=== PATIENT | female | born 1985 | race American Indian/Alaskan Native ===

== ENCOUNTER 2019-11-13 09:07 | Inpatient (IN) | payer OTHER ==
[2019-11-13] MEDS ORDERED: fentaNYL 100 MCG/2 ML INJ IV PRN (10:33)
[2019-11-13] MEDS ORDERED: TERBUTALINE 1 MG/1 ML INJ SUB-Q PRN (10:33)
[2019-11-13] MEDS ORDERED: MINERAL OIL 30 ML ORAL LIQD PO PRN (10:33)
[2019-11-13] MEDS ORDERED: LIDOCAINE (2%) 20 MG/1 ML VIAL 20 ML MDV INFILTRATI ONE (10:33)
[2019-11-13] MEDS ORDERED: DINOPROSTONE 10 MG VAG SUPP VG ONE (10:33)
[2019-11-13] MEDS ORDERED: NALOXONE 0.4 MG/1 ML INJ IV PRN (10:33)
[2019-11-13] MEDS ORDERED: TERBUTALINE 1 MG/1 ML INJ IVP PRN (10:33)
[2019-11-13] MEDS ORDERED: ONDANSETRON 4 MG/2 ML INJ IV PRN (10:33)
[2019-11-13] MEDS ORDERED: ePHEDrine SULFATE 50 MG/1 ML INJ IV PRN (10:33)
[2019-11-13] MEDS ORDERED: OXYTOCIN 20 UNIT/1000ML DRIP 20 UNITS/1,000 ML BAG IV SCH (11:00)
[2019-11-13] MEDS ORDERED: OXYTOCIN DRIP 30 UNITS/500 ML BAG IV SCH ×2 (11:00)
[2019-11-13 12:08] LABS: Hematocrit 38.1 % (30.3-42.9); Hemoglobin 13.2 gm/dl (10.1-14.3); Mean Corpuscular HGB Conc 35 % (30-34); Mean Corpuscular Volume 92 fl (79-97); Platelet Count 192 K/mm3 (140-440); Red Blood Count 4.15 M/mm3 (3.65-5.03); Red Cell Distribution Width 13.7 % (13.2-15.2)
[2019-11-13] MEDS: LACTATED RINGERS 1,000 ML IV SCH ×2 (12:33→20:16)
--- NOTE | 2019-11-13 17:59 | History and Physical Report ---
History of Present Illness Date of examination: 11/13/19 Date of admission: 11/13/19 09:08 Chief complaint: scheduled induction of labor History of present illness: Pt is a 34 year old primigravida [place] 12/02/19 at 37w2d who presents for scheduled induction of labor secondary to preeclampsia with mild features and IUGR (7%ile). She denies vaginal bleeding or leakage of fluid. She reports rare contractions. She has had care at [facility] since 18 wks complicated by EIF, trichomonas treated with negative test of cure. She is GBS negative. Past History Past Medical History: no pertinent history Past Surgical History: no surgical history [employer] History: trichomonas (treated with negative test of cure ) Family/Genetic History: none Social history: (Same-sex relationship ) - Obstetrical History Expected Date of Delivery: 12/02/19 Actual Gestation: 37 Week(s) 2 Day(s) : 1 Medications and Allergies Allergies Allergy/AdvReac Type Severity Reaction Status Date / Time ibuprofen Allergy Unknown Verified 11/13/19 10:47 Latex, Natural Rubber Allergy Unknown Verified 11/13/19 10:49 Active Meds: Active Medications Butorphanol Tartrate (Stadol) 1 mg IV Q2H PRN PRN Reason: Pain, Moderate(4-6) LABOR PAIN Butorphanol Tartrate (Stadol) 2 mg IV Q2H PRN PRN Reason: Pain , Severe (7-10) Ephedrine Sulfate (Ephedrine Sulfate) 10 mg IV Q2M PRN PRN Reason: Hypotension Fentanyl (Sublimaze) 100 mcg IV Q2H PRN PRN Reason: Pain,Severe (7-10) LABOR PAIN Oxytocin/Sodium Chloride (Pitocin/Ns 20 Unit/1000ml Drip) 20 units in 1,000 mls @ 125 mls/hr IV DIRECT NAVDEEP Oxytocin/Sodium Chloride (Pitocin/Ns 30 Unit/500ml) 30 units in 500 mls @ 1 mls/hr IV TITR NAVDEEP; Protocol Lactated Ringer's (Lactated Ringers) 1,000 mls @ 125 mls/hr IV DIRECT NAVDEEP Last Admin: 11/13/19 12:33 Dose: 125 mls/hr Documented by: Mineral Oil (Mineral Oil) 30 ml PO QHS PRN PRN Reason: Constipation Naloxone HCl (Naloxone) 0.1 mg IV Q2MIN PRN PRN Reason: Res Rate </= 8 or 02 SAT < 92% Ondansetron HCl (Zofran) 4 mg IV Q8H PRN PRN Reason: Nausea And Vomiting Terbutaline Sulfate (Brethine) 0.25 mg SUB-Q ONCE PRN PRN Reason: Hyperstimulation/Hypertonicity Terbutaline Sulfate (Brethine) 0.25 mg IVP ONCE PRN PRN Reason: Hyperstimulation/Hypertonicity Review of Systems All systems: negative - Vital Signs Vital signs: Vital Signs Pulse BP 78 135/77 11/13/19 09:56 11/13/19 09:56 Temp Pulse Resp BP Pulse Ox 98.2 F 78 18 133/63 100 11/13/19 14:01 11/13/19 17:56 11/13/19 16:01 11/13/19 17:55 11/13/19 17:56 - Physical Exam Breasts: Positive: deferred Abdomen: Positive: soft (obese, gravid ) Uterus: Positive: enlarged (gravid ) Extremities: Positive: normal - Obstetrical FHR: auscultation normal Uterine Contraction Pattern: Irregular Results Result Diagrams: 11/13/19 11:40 Abnormal lab results 11/13/19 Range/Units 11:40 MCHC 35 H (30-34) % All other labs normal. Assessment and Plan A: IUP at 37w2d Preeclampsia without severe features IUGR Obesity Trichomonas treated with negative test of cure GBS Negative P: Admit to labor and delivery Cervical ripening Closely monitor maternal and status
[2019-11-13] MEDS: BUTORPHANOL 2 MG/1 ML INJ IV PRN ×4 (18:25→22:45)
[2019-11-14] MEDS: BUTORPHANOL 2 MG/1 ML INJ IV PRN ×4 (00:45→05:45)
[2019-11-14] MEDS: LACTATED RINGERS 1,000 ML IV SCH ×2 (03:32→22:32)
[2019-11-14] MEDS ORDERED: LIDOCAINE (2%) 20 MG/1 ML VIAL 20 ML MDV INFILTRATI ONE ×2 (07:42→08:22)
--- NOTE | 2019-11-14 08:32 | Procedure Note ---
OB Delivery Note - Delivery Date of Delivery: 11/14/19 Surgeon: SHAUNA GRAFF Estimated blood loss: 100cc - Vaginal Delivery presentation: vertex Intrapartum events: gestational hypertension Delivery augmentation: pitocin Delivery monitor: external FHT, external uterine Route of delivery: Delivery placenta: spontaneous Delivery cord: 3 umbilical vessels Episiotomy: none Delivery laceration: 1st degree Delivery repair: vicryl Anesthesia: local Delivery comments: The patient progressed to complete complete +1 and post to deliver a live-born female with Apgars of 8 and 9 weight 4 pounds 8 ounces. After delivery of the head the shoulders delivered without difficulty. The was immediately placed on the patient's abdomen. Delayed cord clamping was performed. The infant was bulb suctioned and stimulated. The cord was clamped and cut x2. The placenta delivered spontaneously intact with a three-vessel cord. The patient sustained a midline first-degree laceration repaired with 2-0 Vicryl after being injected with 10 cc of lidocaine. Estimated blood loss of 100 mL. - Infant A at 1 minute: 8 at 5 minutes: 9 Infant Gender: Female (Weight 4 pounds 8 ounces)
[2019-11-14] MEDS ORDERED: MAGNESIUM SULFATE 4 GM/100 ML BAG IV ONE ×2 (08:41)
[2019-11-14] MEDS ORDERED: MAGNESIUM SULFATE 40GM/1000ML 40 GM/1,000 ML BAG IV SCH (09:00)
[2019-11-14] MEDS ORDERED: hydrALAZINE 20 MG/1 ML INJ IV PRN (15:32)
[2019-11-14] MEDS: ACETAMINOPHEN 325 MG TAB PO PRN (15:42)
[2019-11-14] MEDS: HYDROcodone/ACETAMINOPHEN 5-325 MG TAB PO PRN (22:38)
[2019-11-15 04:17] LABS: Hematocrit 35.6 % (30.3-42.9); Hemoglobin 12.1 gm/dl (10.1-14.3)
[2019-11-15] MEDS: HYDROcodone/ACETAMINOPHEN 5-325 MG TAB PO PRN ×4 (05:10→23:50)
--- NOTE | 2019-11-15 08:03 | Progress Note ---
Assessment and Plan A: PPD1 s/p Preeclampsia, on mag sulfate Vital signs and labs stable P: D/c mag after 24 hours Routine pp care Reviewed breast feeding education Reviewed relief of gas Subjective - Subjective Date of service: 11/15/19 Principal diagnosis: s/p , preeclampsia Interval history: PPD1 s/p . On Magnesium for preeclampsia Patient reports: appetite normal, pain well controlled (gas pain), other (Aviles catheter in place) [place]: doing well, bottle feeding (for SGA. Pumping breasts) Objective - Vital Signs Latest vital signs: Vital Signs Temp Pulse BP Pulse Ox 11/15/19 07:53 76 138/62 11/15/19 07:38 82 139/79 11/15/19 07:23 72 111/56 11/15/19 07:08 76 119/57 11/15/19 06:53 71 123/56 11/15/19 06:38 78 135/63 11/15/19 06:23 83 119/58 11/15/19 06:08 78 126/58 11/15/19 05:53 75 138/65 11/15/19 05:38 68 134/68 11/15/19 05:23 70 153/78 11/15/19 05:08 77 142/72 11/15/19 04:53 72 144/78 11/15/19 04:38 71 137/74 11/15/19 04:23 79 156/78 11/15/19 04:15 97.9 F 11/15/19 04:08 65 127/70 11/15/19 03:53 65 149/74 11/15/19 03:38 64 119/60 11/15/19 03:23 64 141/64 11/15/19 03:08 64 138/65 11/15/19 02:53 70 115/58 11/15/19 02:38 76 124/63 11/15/19 02:23 69 109/57 11/15/19 02:08 72 129/68 11/15/19 01:53 83 132/69 11/15/19 01:38 81 125/62 11/15/19 01:24 98.1 F 11/15/19 01:23 81 121/61 11/15/19 01:08 75 108/57 11/15/19 00:53 79 116/56 11/15/19 00:38 68 124/61 11/15/19 00:23 78 137/70 11/15/19 00:08 76 133/66 11/14/19 23:53 77 117/60 11/14/19 23:38 80 122/61 11/14/19 23:23 74 125/61 11/14/19 23:08 76 130/64 11/14/19 22:53 86 138/70 11/14/19 22:38 86 122/57 11/14/19 22:27 82 139/64 11/14/19 22:23 93 H 153/72 11/14/19 22:08 90 117/56 11/14/19 22:00 98.3 F 11/14/19 21:53 81 123/57 11/14/19 21:38 77 122/59 11/14/19 21:23 82 139/69 11/14/19 21:08 78 136/70 11/14/19 20:53 90 126/62 11/14/19 20:38 82 125/63 11/14/19 20:23 80 126/65 11/14/19 20:08 85 138/74 11/14/19 19:53 84 142/77 11/14/19 19:38 82 142/72 11/14/19 19:23 82 143/73 11/14/19 19:08 75 137/70 11/14/19 18:53 80 139/68 11/14/19 18:38 93 H 142/77 11/14/19 18:23 86 139/76 11/14/19 18:08 84 144/79 11/14/19 17:53 83 146/79 11/14/19 17:38 85 151/81 11/14/19 17:23 81 151/82 11/14/19 17:08 88 148/75 11/14/19 16:53 86 148/72 11/14/19 16:38 90 148/71 11/14/19 16:23 89 154/76 11/14/19 16:08 88 169/76 11/14/19 15:53 93 H 185/86 11/14/19 15:42 89 167/79 11/14/19 15:38 89 167/79 11/14/19 15:23 86 165/79 11/14/19 15:08 90 175/83 11/14/19 14:53 93 H 175/82 11/14/19 14:38 91 H 172/83 11/14/19 14:23 96 H 175/85 11/14/19 14:08 93 H 174/83 11/14/19 13:53 83 173/80 11/14/19 13:38 91 H 170/77 11/14/19 13:23 81 166/77 11/14/19 13:08 91 H 181/78 11/14/19 12:53 99 H 176/84 11/14/19 11:23 75 161/75 11/14/19 11:08 75 161/79 11/14/19 10:54 63 157/73 11/14/19 10:38 88 186/90 11/14/19 10:23 61 166/78 11/14/19 10:08 60 156/77 11/14/19 09:53 92 H 139/68 11/14/19 09:38 100 H 148/78 11/14/19 09:23 84 167/94 11/14/19 09:09 99 H 161/84 11/14/19 08:54 64 167/74 11/14/19 08:39 102 H 189/92 11/14/19 08:24 78 170/75 11/14/19 08:22 75 100 11/14/19 08:17 115 H 100 11/14/19 08:12 117 H 100 11/14/19 08:07 97 H 99 11/14/19 08:02 62 100 Intake and Output 11/14/19 11/15/19 11/15/19 23:59 07:59 15:59 Output Total 1200 1850 Balance -1200 -1850 Output: Urine 1200 1850 Indwelling Catheter 1200 1850 Other: Total, Output Amount 1200 1100 - Exam Lungs: Present: Normal air movement Abdomen: Present: soft. Absent: distention Uterus: Present: firm, fundal height below umbilicus Extremities: Present: normal - Labs Labs: Abnormal lab results 11/14/19 11/15/19 Range/Units 22:32 03:46 Magnesium 5.40 H > 5.80 H (1.7-2.3) mg/dL
--- NOTE | 2019-11-16 08:11 | Progress Note ---
Assessment and Plan A: PPD2 s/p S/p mag sulfate Vital signs and labs stable P: Routine pp care Reviewed breast feeding education Subjective - Subjective Date of service: 11/16/19 Principal diagnosis: s/p , preeclampsia Interval history: PPD2 s/p . S/p Magnesium for preeclampsia Patient reports: appetite normal, voiding normally, pain well controlled, bowel movement, ambulating normally : doing well, nursing well, bottle feeding (both) Objective - Vital Signs Latest vital signs: Vital Signs Temp Pulse Resp BP BP Pulse Ox 11/16/19 00:50 18 11/15/19 23:50 18 11/15/19 23:43 88 128/69 11/15/19 16:15 97.7 F 75 18 132/68 98 11/15/19 10:30 98.1 F 80 19 139/77 97 11/15/19 09:53 86 156/82 11/15/19 09:38 82 157/83 11/15/19 09:29 72 155/80 11/15/19 09:28 16 11/15/19 09:23 72 155/80 11/15/19 09:08 76 144/74 11/15/19 08:53 78 149/74 11/15/19 08:38 73 141/68 11/15/19 08:23 78 140/67 Intake and Output 11/15/19 11/16/19 11/16/19 23:59 07:59 15:59 Intake Total 640 360 Output Total 300 Balance 340 360 Intake: Oral 300 Intake, Free Water 340 360 Output: Urine 300 Void 300 Other: Total, Intake Amount 300 Total, Output Amount 300 # Voids Void 1 1 - Exam Breasts: Present: normal Lungs: Present: Normal air movement Abdomen: Present: soft. Absent: distention Uterus: Present: firm, fundal height below umbilicus. Absent: bogginess Extremities: Present: normal - Labs Labs: Abnormal lab results 11/15/19 Range/Units 12:20 Magnesium 4.10 H (1.7-2.3) mg/dL
[2019-11-16] MEDS: ACETAMINOPHEN 325 MG TAB PO PRN ×2 (10:29→15:15)
[2019-11-17] MEDS: ACETAMINOPHEN 325 MG TAB PO PRN (06:18)
--- NOTE | 2019-11-17 08:19 | Progress Note ---
Assessment and Plan A: PPD#3 s/p at term Severe Preeclampsia s/p magnesium sulfate for seizure prophylaxis Obesity P: Discharge home today with follow up in 1 week for BP check Subjective - Subjective Date of service: 11/17/19 Principal diagnosis: s/p , preeclampsia Interval history: Pt without complaints. Patient reports: appetite normal, voiding normally, ambulating normally [place]: doing well Objective - Vital Signs Latest vital signs: Vital Signs Temp Pulse Resp BP Pulse Ox 11/17/19 06:28 58 L 138/51 100 11/17/19 06:18 18 11/17/19 00:10 98.1 F 70 20 141/62 99 11/16/19 22:25 73 142/62 11/16/19 15:49 97.4 F L 77 16 145/72 100 Intake and Output 11/16/19 11/17/19 11/17/19 22:59 06:59 14:59 Intake Total 240 360 Balance 240 360 Intake: Oral 240 360 Other: Total, Intake Amount 240 240 # Voids Void 1 1 - Exam Breasts: Present: deferred Abdomen: Present: soft Uterus: Present: fundal height below umbilicus Extremities: Present: edema (trace)
--- NOTE | 2019-11-17 08:20 | Discharge Summary ---
Providers - Providers Date of Admission: 11/13/19 09:08 Date of discharge: 11/17/19 Attending physician: AWA ORTIZ Primary care physician: SAMPLE EXAMINER Hospitalization Reason for admission: induction of labor Delivery: Procedure details: Please see delivery note. Laceration: 1st degree complications: none Discharge diagnosis: IUP at term delivered baby: female Hospital course: The patient was admitted for induction of labor and went on to have a spontaneous vaginal delivery which she tolerated well. Her course was complicated by preeclampsia with severe features and she received IV magnesium sulfate for 24 hours after delivery. She was also started on labetalol 300 mg twice daily to control her blood pressure. By day #3 she met discharge criteria. She will follow-up in the office in 1 week for blood pressure check. Condition at discharge: Stable Disposition: DC-01 TO HOME OR SELFCARE - Discharge Diagnoses (1) Term of female Status: Acute (2) Severe preeclampsia Status: Acute Qualifiers: Trimester: third trimester Qualified Code(s): O14.13 - Severe pre- eclampsia, third trimester (3) IUGR (intrauterine growth restriction) Status: Acute (4) Obesity (BMI 35.0-39.9 without comorbidity) Status: Acute Plan - Discharge Medications Prescriptions: Labetalol HCl [Labetalol 300mg TAB] 300 mg PO BID #60 tablet HYDROcodone/APAP 5-325 [Ramsay 5/325] 1 each PO Q6HR PRN #30 tablet PRN Reason: Pain - Provider Discharge Summary Activity: routine, no sex for 6 weeks, no heavy lifting 4 weeks, no strenuous exercise Diet: routine Instructions: routine Additional instructions: [] Smoking cessation referral if applicable(refer to patient education folder for contact #) [] Refer to [facility] Booklet Call your doctor immediately for: * Fever > 100.5 * Heavy vaginal bleeding ( >1 pad per hour) * Severe persistent headache * Shortness of breath * Reddened, hot, painful area to leg or breast * Drainage or odor from incision. * Keep incision clean and dry at all times and follow doctor's instructions regarding bathing/showering - Follow up plan Follow up: PRIMARY CARE, [Primary Care Provider] - 7 Days STEPHANIE VALVERDE CNM [Advanced Practice Nurse] - 7 Days (Please call for blood pressure check appt)
[2019-11-17] MEDS ORDERED: WITCH HAZEL/ GLYCERIN PAD TP PRN (09:09)
[2019-11-17 15:38] VITALS: BP 139/60
== END 2019-11-17 15:30 | disposition home or self-care (01) | DRG 775 ==
LOC: TRG 09:07 → LD 09:08 → OB 11-15 10:27
PROVIDERS: ADMIT Obstetrics & Gynecology; ATTEND Obstetrics & Gynecology
PROC: 10E0XZZ Delivery of Products of Conception, External Approach (ICD-10-PCS; principal; 2019-11-14)
PROC: 0HQ9XZZ Repair Perineum Skin, External Approach (ICD-10-PCS; 2019-11-14)
DX: O14.14 Severe pre-eclampsia complicating childbirth (principal); O36.5930 Maternal care for other known or suspected poor fetal growth, third trimester, not applicable or unspecified; O99.214 Obesity complicating childbirth; E66.9 Obesity, unspecified; O13.4 Gestational [pregnancy-induced] hypertension without significant proteinuria, complicating childbirth; O70.0 First degree perineal laceration during delivery; Z3A.37 37 weeks gestation of pregnancy; Z37.0 Single live birth
CPT/HCPCS: 36415; 59025; 59200; 83735; 85014; 85018; 85027; 86592; 86850; 86900; 86901; 96360; 96361; 96365; 96374; G0378; J0595; J2590; J3010; J3475; J7120